=== PATIENT | female | born 1965 | race Caucasian/White ===

== ENCOUNTER → 2021-12-24 | Outpatient (CLI) | payer OTHER | LOC: CARD 12:02 | PROVIDERS: ATTEND Podiatrist | DX: E11.621 Type 2 diabetes mellitus with foot ulcer (principal); L97.411 Non-pressure chronic ulcer of right heel and midfoot limited to breakdown of skin | CPT/HCPCS: 93922; 93925; 93970 ==

== ENCOUNTER 2021-12-29 14:12 | Outpatient (RCR) | payer OTHER ==
[2021-12-15 16:53] LABS: BASOPHILS % 0.2 % (0.0-1.0); EOSINOPHILS # (AUTO) 0.3 (0.0-0.4); EOSINOPHILS % 2.6 % (0.0-6.0); HEMATOCRIT 38.4 % (34.2-44.1); HEMOGLOBIN 11.1 g/dL (12.0-16.0); LYMPHOCYTES # (AUTO) 1.7 (1.0-3.2); LYMPHOCYTES % 13.9 % (18.0-39.1); MEAN CORPUSCULAR HEMOGLOBIN 26.7 pg (28-32); MEAN CORPUSCULAR HGB CONC 28.9 g/dL (31-35); MEAN CORPUSCULAR VOLUME 92.3 fL (81-99); MONOCYTES # (AUTO) 0.7 (0.2-0.8); MONOCYTES % 5.3 % (4.4-11.3); NEUTROPHILS # (AUTO) 9.5 (2.1-6.9); NEUTROPHILS % 77.3 % (38.7-80.0); PLATELET COUNT 208 x10e3/uL (140-360); RED BLOOD COUNT 4.16 x10e6/uL (3.6-5.1); RED CELL DISTRIBUTION WIDTH 15.9 % (11.7-14.4)
[2021-12-15 17:11] LABS: ALBUMIN 2.7 g/dL (3.5-5.0); ALBUMIN/GLOBULIN RATIO 0.5 (0.8-2.0); ANION GAP 12.8 mmol/L (8-16); CREATININE, SERUM 2.31 mg/dL (0.57-1.11); POTASSIUM 4.8 mmol/L (3.5-5.1)
[~2021-12-29 14:12] MED LIST: LIDOCAINE VISC 2% SOLN 15 ML UDC ONE; MUPIROCIN 2% OINT 22 GM TUBE ONE
== END 2022-01-03 ==
LOC: WCC 14:12
PROVIDERS: ATTEND Podiatrist
DX: E11.621 Type 2 diabetes mellitus with foot ulcer (principal); E11.22 Type 2 diabetes mellitus with diabetic chronic kidney disease; E11.65 Type 2 diabetes mellitus with hyperglycemia; L97.411 Non-pressure chronic ulcer of right heel and midfoot limited to breakdown of skin; I82.491 Acute embolism and thrombosis of other specified deep vein of right lower extremity; L98.8 Other specified disorders of the skin and subcutaneous tissue; I89.0 Lymphedema, not elsewhere classified; G90.09 Other idiopathic peripheral autonomic neuropathy; N18.30 Chronic kidney disease, stage 3 unspecified; I10 Essential (primary) hypertension; I63.9 Cerebral infarction, unspecified; I27.29 Other secondary pulmonary hypertension; E78.1 Pure hyperglyceridemia; E66.3 Overweight
CPT/HCPCS: 36415; 80053; 83036; 84134; 85025; 85651; 86141

== ENCOUNTER 2022-03-16 14:44 | Outpatient (RCR) | payer OTHER ==
[~2022-03-16 14:44] MED LIST changes: +AMMONIUM LACTATE 12% LOTION 225GM BTL ONE; -LIDOCAINE VISC 2% SOLN 15 ML UDC ONE; -MUPIROCIN 2% OINT 22 GM TUBE ONE
[2022-03-16] MEDS ORDERED: TRIAMCINOLONE ACET 0.1% CREAM 15 GM TUBE ONE (15:24)
[2022-03-16] MEDS ORDERED: AMMONIUM LACTATE 12% LOTION 225GM BTL ONE (15:24)
[2022-03-16 16:31] LABS: BASOPHILS % 0.3 % (0.0-1.0); EOSINOPHILS # (AUTO) 0.2 (0.0-0.4); HEMATOCRIT 38.5 % (34.2-44.1); HEMOGLOBIN 11.6 g/dL (12.0-16.0); LYMPHOCYTES # (AUTO) 1.3 (1.0-3.2); LYMPHOCYTES % 10.8 % (18.0-39.1); MEAN CORPUSCULAR HEMOGLOBIN 27.4 pg (28-32); MEAN CORPUSCULAR HGB CONC 30.1 g/dL (31-35); MONOCYTES # (AUTO) 0.6 (0.2-0.8); MONOCYTES % 5.4 % (4.4-11.3); NEUTROPHILS # (AUTO) 9.5 (2.1-6.9); NEUTROPHILS % 81.1 % (38.7-80.0); PLATELET COUNT 229 x10e3/uL (140-360); RED BLOOD COUNT 4.23 x10e6/uL (3.6-5.1); RED CELL DISTRIBUTION WIDTH 16.7 % (11.7-14.4)
[2022-03-16 16:43] LABS: ALBUMIN 2.8 g/dL (3.5-5.0); ALBUMIN/GLOBULIN RATIO 0.5 (0.8-2.0); ANION GAP 15.5 mmol/L (8-16); CALCIUM 8.5 mg/dL (8.4-10.2); CREATININE, SERUM 1.99 mg/dL (0.57-1.11); POTASSIUM 4.5 mmol/L (3.5-5.1)
== END 2022-04-05 ==
LOC: WCC 14:44
PROVIDERS: ATTEND Podiatrist
DX: E11.621 Type 2 diabetes mellitus with foot ulcer (principal); E11.22 Type 2 diabetes mellitus with diabetic chronic kidney disease; E11.65 Type 2 diabetes mellitus with hyperglycemia; L97.411 Non-pressure chronic ulcer of right heel and midfoot limited to breakdown of skin; I82.491 Acute embolism and thrombosis of other specified deep vein of right lower extremity; L98.8 Other specified disorders of the skin and subcutaneous tissue; I89.0 Lymphedema, not elsewhere classified; N18.30 Chronic kidney disease, stage 3 unspecified; I10 Essential (primary) hypertension; I27.29 Other secondary pulmonary hypertension; I63.9 Cerebral infarction, unspecified; G90.09 Other idiopathic peripheral autonomic neuropathy; E78.1 Pure hyperglyceridemia; E66.3 Overweight
CPT/HCPCS: 36415; 80053; 83036; 84134; 85025

== ENCOUNTER 2022-04-27 14:42 | Outpatient (RCR) | payer OTHER ==
[2022-04-27] MEDS ORDERED: AMMONIUM LACTATE 12% LOTION 225GM BTL ONE (15:37)
[2022-04-27] MEDS ORDERED: LIDOCAINE VISC 2% SOLN 15 ML UDC ONE (15:37)
== END 2022-05-05 ==
LOC: WCC 14:42
PROVIDERS: ATTEND Podiatrist
DX: E11.22 Type 2 diabetes mellitus with diabetic chronic kidney disease (principal); E11.621 Type 2 diabetes mellitus with foot ulcer; E11.65 Type 2 diabetes mellitus with hyperglycemia; L97.411 Non-pressure chronic ulcer of right heel and midfoot limited to breakdown of skin; I82.491 Acute embolism and thrombosis of other specified deep vein of right lower extremity; I89.0 Lymphedema, not elsewhere classified; L98.8 Other specified disorders of the skin and subcutaneous tissue; G90.09 Other idiopathic peripheral autonomic neuropathy; I63.9 Cerebral infarction, unspecified; I27.29 Other secondary pulmonary hypertension; N18.30 Chronic kidney disease, stage 3 unspecified; I10 Essential (primary) hypertension; E78.1 Pure hyperglyceridemia; E66.3 Overweight

== ENCOUNTER 2023-05-01 10:27 | Outpatient (RCR) | payer OTHER ==
[2023-04-21 15:51] LABS: BASOPHILS # (AUTO) 0.1 (0.0-0.1); BASOPHILS % 0.4 % (0.0-1.0); EOSINOPHILS # (AUTO) 0.5 (0.0-0.4); EOSINOPHILS % 3.6 % (0.0-6.0); HEMATOCRIT 36.6 % (34.2-44.1); HEMOGLOBIN 11.4 g/dL (12.0-16.0); LYMPHOCYTES # (AUTO) 1.6 (1.0-3.2); LYMPHOCYTES % 11.5 % (18.0-39.1); MEAN CORPUSCULAR HEMOGLOBIN 29.3 pg (28-32); MEAN CORPUSCULAR HGB CONC 31.1 g/dL (31-35); MEAN CORPUSCULAR VOLUME 94.1 fL (81-99); MONOCYTES # (AUTO) 0.6 (0.2-0.8); NEUTROPHILS # (AUTO) 11.4 (2.1-6.9); NEUTROPHILS % 79.9 % (38.7-80.0); PLATELET COUNT 255 x10e3/uL (140-360); RED BLOOD COUNT 3.89 x10e6/uL (3.6-5.1); RED CELL DISTRIBUTION WIDTH 15.8 % (11.7-14.4)
[2023-04-21 16:41] LABS: ALBUMIN 2.8 g/dL (3.5-5.0); ALBUMIN/GLOBULIN RATIO 0.5 (0.8-2.0); ANION GAP 17.5 mmol/L (8-16); CALCIUM 8.9 mg/dL (8.4-10.2); CREATININE, SERUM 2.55 mg/dL (0.57-1.11); POTASSIUM 4.5 mmol/L (3.5-5.1)
[~2023-05-01 10:27] MED LIST changes: -AMMONIUM LACTATE 12% LOTION 225GM BTL ONE; +LIDOCAINE VISC 2% SOLN 15 ML UDC ONE
== END 2023-05-05 ==
LOC: WCC 10:27
PROVIDERS: ATTEND Internal Medicine Infectious Disease
DX: E11.621 Type 2 diabetes mellitus with foot ulcer (principal); L97.418 Non-pressure chronic ulcer of right heel and midfoot with other specified severity; R60.0 Localized edema
CPT/HCPCS: 36415; 80053; 83036; 84134; 85025; 86140

== ENCOUNTER 2024-03-27 08:00 | Outpatient (RCR) | payer OTHER ==
[2024-03-27] MEDS ORDERED: LIDOCAINE VISC 2% SOLN 15 ML UDC ONE (18:13)
[2024-03-27] MEDS ORDERED: LIDOCAINE/PRILOCAINE 2.5-2.5% KIT ONE (18:13)
[2024-04-12] MEDS ORDERED: NEOSTIGMINE 1 MG/ML 10ML VIAL ONE (06:38)
== END 2024-04-05 ==
LOC: WCC 08:00
PROVIDERS: ATTEND Nurse Practitioner Family
DX: E11.621 Type 2 diabetes mellitus with foot ulcer (principal); L97.418 Non-pressure chronic ulcer of right heel and midfoot with other specified severity; R60.0 Localized edema
CPT/HCPCS: 11042; 99205; J2710